=== PATIENT | male | born 1990 | race Two or more races ===

== ENCOUNTER 2024-04-08 11:01 | Emergency (ER) | payer MEDICAID ==
[~2024-04-08] VITALS: Ht 172.7 cm; Wt 77.1 kg
[2024-04-08] MEDS ORDERED: TDAP [DIPH/PERTUSSIS/TET] 0.5 ML VIAL IM ONE (14:04)
[2024-04-08] MEDS: TDAP [DIPH/PERTUSSIS/TET] 0.5 ML VIAL IM ONE (14:09)
[2024-04-08 14:20] VITALS: BP 134/78; TEMP 98; O2SAT 98
== END 2024-04-08 14:21 | disposition home or self-care (01) ==
LOC: ER 11:18
DX: S01.111A Laceration without foreign body of right eyelid and periocular area, initial encounter (principal); W20.8XXA Other cause of strike by thrown, projected or falling object, initial encounter; Y93.89 Activity, other specified; Y92.89 Other specified places as the place of occurrence of the external cause; Y99.8 Other external cause status
CPT/HCPCS: 90715